=== PATIENT | female | born 1985 | race Caucasian/White ===

== ENCOUNTER 2020-07-31 06:13 | Inpatient (IN) | payer OTHER, SELFPAY ==
[2020-07-31] VITALS (60 sets, daily range): BP systolic 99–153; BP diastolic 55–121; PULSE 68–187; RESP 16–18; TEMP 36.6–37.2; O2SAT 100; BMI 30.3
--- NOTE | 2020-07-31 06:03 | PM.IMHP ---
H&P: HPI History of Present Illness Date/Time: 07/31/20 06:03 Chief complaint: Pre-admit Narrative: Ivon Rodriguez is a 34 year old female 011 whose last menstrual period was 11/12/2019, EDC is 08/18/2020, presents at 37 weeks gestation with gestational hypertension. Her blood pressures have been slowly rising. She had a previous gestational hypertension baby was delivered at 37 weeks. She also takes Zoloft for depression and anxiety. Risks and benefits reviewed. PIH labs are pending Review of Systems Review of Systems: All systems reviewed & are unremarkable except as noted in HPI and below PMFSH Family History Family History Sibling Heart attack Social History Social History Substance use: never Gender identity (if verbalized by the patient): Female Spiritual care concerns: No Meds Home Medications and Allergies Home Medications Medication Instructions Recorded Confirmed Type PNV cmb#95-ferrous fumarate-FA 1 tablet PO DAILY 07/21/20 07/21/20 History [] sertraline 100 mg PO DAILY 07/21/20 07/21/20 History Allergies Allergy/AdvReac Type Severity Reaction Status Date / Time omeprazole Allergy Mild Rash Verified 10/23/16 14:44 Exam Const: General: no acute distress Eyes: General: appearance normal, both eyes and all related structures Neck: Neck: supple and no JVD Thyroid: thyroid normal Resp: Effort & Inspection: normal respiratory effort Auscultation: clear to auscultation bilaterally Cardio: Rate: regular rate Rhythm: regular rhythm GI: Inspection: non-distended GI Palp: Yes Soft to palpation, No Tenderness to palpation present (GI) and No Guarding due to palpation present (GI) Auscultation: normal bowel sounds : General: Yes other ( gravid soft uterus) Skin: General skin exam: no rashes or lesions noted Extrem: General: normal to inspection and no edema Psych: Mental Status: mental status grossly normal Affect: normal affect Assessment and Plan Additional Plan impression: Term with gestational hypertension Plan: Medical induction of labor. PIH labs were pending. Spontaneous vaginal delivery is expected
--- NOTE | 2020-07-31 06:37 | WPDOBADMIT ---
Obstetrics - Admit Note Admission Note: record reviewed. No pertinent additions to the history and/or any subsequent changes in the physical findings that are not consistent with the expected course of the were found. Additions to the history and/or subsequent changes in the physical findings follow. None. cx 3-4/80/-1 arom clear blood tinged fhts ok
[2020-07-31 07:11] LABS: Basophils Absolute Auto 0.1 K/mm3 (0.0-0.1); Basophils Percent Auto 0.5 % (0.2-1.2); Eosinophils Absolute Auto 0.2 K/mm3 (0-0.3); Eosinophils Percent Auto 1.7 % (0-4.4); Hematocrit 36.5 % (37.0-47.0); Hemoglobin 12.3 g/dL (12.0-15.0); Immature Granulocyte Absolute 0.12 K/mm3 (0.00-0.031); Immature Granulocyte Percent A 1.2 % (0-0.5); Immature Platelet Fraction Pct 15.9 % (0.9-11.2); Lymphocytes Absolute Auto 2.11 K/mm3 (0.9-3.2); Lymphocytes Percent Auto 20.3 % (18.3-44.2); Mean Corpuscular HGB Conc 33.7 g/dl (32-36); Mean Corpuscular Hemoglobin 31.4 pg (26-34); Mean Corpuscular Volume 93.1 fl (80-100); Mean Platelet Volume 13.7 fl (7.4-10.4); Monocytes Absolute Auto 0.6 K/mm3 (0.1-0.6); Monocytes Percent Auto 5.5 % (2.6-8.5); Neutrophils Absolute Auto 7.4 K/mm3 (1.3-6.7); Neutrophils Percent Auto 70.8 % (45.5-73.1); Platelet Count Result 158 k/mm3 (150-375); Red Blood Count 3.92 M/mm3 (4.2-5.4); Red Cell Distribution Width 13.6 % (11.5-14.5); White Blood Count 10.4 K/mm3 (4.5-10.0)
[2020-07-31] MEDS: OXYTOCIN 30 UNITS/NS 500 ML 30 UNITS/500 ML BAG IV CONT (07:14)
[2020-07-31] MEDS: AMPICILLIN 2 GM/NS 100 ML 2 GM/100 ML BAG IVPB (07:15)
[2020-07-31] MEDS: LACTATED RINGERS 1,000 ML 125 ML IV CONT ×2 (07:15→10:29)
[2020-07-31 07:21] LABS: Alanine Aminotransferase 15 U/L (4-35); Albumin Level 3.9 g/dL (3.5-5.1); Alkaline Phosphatase 256 U/L (38-126); Anion Gap 12 mmol/L (8-16); Aspartate Amino Transferase 26 U/L (14-36); Bilirubin,Total 0.2 mg/dL (0.2-1.3); Blood Urea Nitrogen 5 mg/dL (7-17); Calcium 9.6 mg/dL (8.4-10.2); Carbon Dioxide 22 mmol/L (22-30); Chloride 104 mmol/L (98-107); Estimated Glomerular Filt Rate > 60; Glucose 100 mg/dL (65-105); Potassium 3.5 mmol/L (3.4-5.0); Sodium 138 mmol/L (137-145)
[2020-07-31 07:35] LABS: Uric Acid 4.9 mg/dL (2.5-7.5)
--- NOTE | 2020-07-31 07:46 | LDADM ---
This patient, Ivon Rodriguez, was admitted to Labor/Delivery/Recovery 106 on 07/31/20 at 06:13. Plans for labor, pain management and were discussed with patient. Patient/family oriented to hospital policies and general routines including ID bracelet, bed and alarms, visiting hours, pain management, procedures, bathroom and other care routines, personal items, smoking policy, room service/diet and guest tray routines, security routines, and visiting hours. Patient/Family are encouraged to report perceived risks to care and to ask questions if they do not understand what they are told or what they should do. See OBIX for further documentation.
--- NOTE | 2020-07-31 10:37 | WPDANESEPP ---
Anes - Eval Pre Procedure Procedure: Labor Epidural Date/Time: 07/31/20 10:37 Surgeon: Blaise Preop Diagnosis: Labor Pain Pre Op Diagnosis: IOL Patient Data Age: 34 Gender: F Height: 5 ft 5 in Weight: 82.72 kg Last Vital Signs Temp 36.6 C 07/31/20 10:21 Pulse 72 07/31/20 10:36 BP 102/61 07/31/20 10:36 Pulse Ox 100 07/31/20 10:32 Allergies Allergy/AdvReac Type Severity Reaction Status Date / Time omeprazole Allergy Mild Rash Verified 10/23/16 14:44 Home Medications Medication Instructions Recorded Confirmed Type PNV cmb#95-ferrous fumarate-FA 1 tablet PO DAILY 07/21/20 07/21/20 History [] sertraline 100 mg PO DAILY 07/21/20 07/21/20 History Laboratory Tests 07/31/20 07/31/20 07/31/20 06:44 06:44 06:44 WBC 10.4 K/mm3 H K/mm3 (4.5-10.0) RBC 3.92 M/mm3 L M/mm3 (4.2-5.4) Hgb 12.3 g/dL g/dL (12.0-15.0) Hct 36.5 % L % (37.0-47.0) MCV 93.1 fl fl (80-100) MCH 31.4 pg pg (26-34) MCHC 33.7 g/dl g/dl (32-36) RDW 13.6 % % (11.5-14.5) Plt Count 158 k/mm3 k/mm3 (150-375) MPV 13.7 fl H fl (7.4-10.4) Immature Gran % (Auto) 1.2 % H % (0-0.5) Neut % (Auto) 70.8 % % (45.5-73.1) Lymph % (Auto) 20.3 % % (18.3-44.2) Bland % (Auto) 5.5 % % (2.6-8.5) Eos % (Auto) 1.7 % % (0-4.4) Baso % (Auto) 0.5 % % (0.2-1.2) Lymph # (Auto) 2.11 K/mm3 K/mm3 (0.9-3.2) Bland # (Auto) 0.6 K/mm3 K/mm3 (0.1-0.6) Eos # (Auto) 0.2 K/mm3 K/mm3 (0-0.3) Baso # (Auto) 0.1 K/mm3 K/mm3 (0.0-0.1) Abs Immat Gran (auto) 0.12 K/mm3 H K/mm3 (0.00-0.031) Absolute Neuts (auto) 7.4 K/mm3 H K/mm3 (1.3-6.7) Absolute Nucleated RBC 0.0 K/mm3 K/mm3 (0.0-0.012) Nucleated RBC % 0.0 % % (0.0-0.2) % Immature Plt Fraction 15.9 % H % (0.9-11.2) Sodium Potassium Chloride Carbon Dioxide Anion Gap BUN Creatinine Estim Creat Clear Calc Estimated GFR Glucose Uric Acid 4.9 mg/dL mg/dL (2.5-7.5) Calcium Total Bilirubin AST ALT Alkaline Phosphatase Total Protein Albumin RPR Pending Blood Type Antibody Screen 07/31/20 07/31/20 06:44 06:44 WBC RBC Hgb Hct MCV MCH MCHC RDW Plt Count MPV Immature Gran % (Auto) Neut % (Auto) Lymph % (Auto) Bland % (Auto) Eos % (Auto) Baso % (Auto) Lymph # (Auto) Bland # (Auto) Eos # (Auto) Baso # (Auto) Abs Immat Gran (auto) Absolute Neuts (auto) Absolute Nucleated RBC Nucleated RBC % % Immature Plt Fraction Sodium 138 mmol/L mmol/L (137-145) Potassium 3.5 mmol/L mmol/L (3.4-5.0) Chloride 104 mmol/L mmol/L (98-107) Carbon Dioxide 22 mmol/L mmol/L (22-30) Anion Gap 12 mmol/L mmol/L (8-16) BUN 5 mg/dL L mg/dL (7-17) Creatinine 0.60 mg/dL L mg/dL (0.7-1.0) Estim Creat Clear Calc Not Reportable Estimated GFR > 60 (59 - ) Glucose 100 mg/dL mg/dL (65-105) Uric Acid Calcium 9.6 mg/dL mg/dL (8.4-10.2) Total Bilirubin 0.2 mg/dL mg/dL (0.2-1.3) AST 26 U/L U/L (14-36) ALT 15 U/L U/L (4-35) Alkaline Phosphatase 256 U/L H U/L (38-126) Total Protein 7.0 g/dL g/dL (6.3-8.2) Albumin 3.9 g/dL g/dL (3.5-5.1) RPR Blood Type O Positive Antibody Screen Negative Pregn
[2020-07-31] MEDS: AMPICILLIN 1 GM/NS 50 ML 1 GM/50 ML BAG IVPB (10:55)
[2020-07-31] MEDS: ONDANSETRON INJ 4 MG/2 ML VIAL IV PUSH (10:55)
[2020-07-31 11:44] LABS: Rapid Plasma Reagin Non-Reactive (NonReactive)
--- NOTE | 2020-07-31 11:55 | P.PCNOB_ITS ---
OB - Delivery Note Procedure Delivery date: 07/31/20 Procedure: mil//gbs prophylaxis Intrapartal events: None Induction method: AROM Delivery augmentation: pitocin Delivery monitor: external FHT Route of delivery: Episiotomy description: Midline Delivery repair: vicryl Specimen: No Estimated blood loss (mL): 157 Anesthesia type: Epidural Disposition: floor [place] Baby Date of : 07/31/20 Time of : 11:41 Weeks of gestation at delivery: 37 Infant gender: Female Weight (pounds): 6 Weight (ounces): 15 presentation: vertex position: Right Occiput Anterior Placenta delivery description: Spontaneous cord vessel description: 3 Vessels score one minute: 8 score five minutes: 9 Narrative: amp x 2
[2020-07-31] MEDS: OXYTOCIN 30 UNITS/NS 500 ML 30 UNITS/500 ML BAG 125 UNITS IV CONT (12:14)
[2020-07-31] MEDS: WITCH HAZEL 40 PADS 1 PAD TOPICAL (14:03)
[2020-07-31] MEDS: BENZOCAINE 20% AER SPR (*SP) 56 GM CAN 1 SPRAY TOPICAL (14:03)
--- NOTE | 2020-07-31 14:12 | PC.NURSE ---
Patient transferred to post room #291 per wheelchair from labor and delivery. Support person present. Oriented to unit, room, information board, rooming in, admission packet and security measures. Patient verbalizes understanding.
[2020-07-31] MEDS: IBUPROFEN 600 MG TABLET PO (19:57)
[2020-07-31] MEDS: LANOLIN (LANSINOH) 7.5 GM CREAM 1 APPLIC TOPICAL (20:00)
--- NOTE | 2020-07-31 20:30 | PC.NURSE ---
Breast pump provided due to + kun and initiation of phototherapy to facilitate colostrum/milk transition as quick as possible. Instructions given on breast pump care and usage, pumping schedule, nipple care, and collection and storage of breast milk. Encouraged [id number], breast massage and manual expression to stimulate supply. Pumping log provided and reviewed. Assessed patient for correct flange size, placement and draw. Taught pt hand expression which resulted in 10 drops that was spoon fed to infant. Patient verbalizes and demonstrates understanding of instructions.
[2020-08-01] MEDS: IBUPROFEN 600 MG TABLET PO ×2 (05:47→17:20)
[2020-08-01 05:51] LABS: Hematocrit 27.8 % (37.0-47.0); Hemoglobin 9.4 g/dL (12.0-15.0)
--- NOTE | 2020-08-01 06:33 | PM.OBPNVD ---
OB - PN: Subj Subjective Date/time seen: 08/01/20 06:33 Patient comments: no complaints and pain well controlled baby status: doing well and nursing well OB - PN: Obj Data Labs CBC & Chem 7: 08/01/20 05:43 07/31/20 06:44 Labs: Laboratory Results - last 24 hr 07/31/20 07/31/20 07/31/20 06:44 06:44 06:44 WBC 10.4 H RBC 3.92 L Hgb 12.3 Hct 36.5 L MCV 93.1 MCH 31.4 MCHC 33.7 RDW 13.6 Plt Count 158 MPV 13.7 H Immature Gran % (Auto) 1.2 H Neut % (Auto) 70.8 Lymph % (Auto) 20.3 Wilkin % (Auto) 5.5 Eos % (Auto) 1.7 Baso % (Auto) 0.5 Lymph # (Auto) 2.11 Wilkin # (Auto) 0.6 Eos # (Auto) 0.2 Baso # (Auto) 0.1 Abs Immat Gran (auto) 0.12 H Absolute Neuts (auto) 7.4 H Absolute Nucleated RBC 0.0 Nucleated RBC % 0.0 % Immature Plt Fraction 15.9 H Sodium Potassium Chloride Carbon Dioxide Anion Gap BUN Creatinine Estim Creat Clear Calc Estimated GFR Glucose Uric Acid 4.9 Calcium Total Bilirubin AST ALT Alkaline Phosphatase Total Protein Albumin RPR Non-reactive Blood Type Antibody Screen 07/31/20 07/31/20 08/01/20 06:44 06:44 05:43 WBC RBC Hgb 9.4 L Hct 27.8 L MCV MCH MCHC RDW Plt Count MPV Immature Gran % (Auto) Neut % (Auto) Lymph % (Auto) Wilkin % (Auto) Eos % (Auto) Baso % (Auto) Lymph # (Auto) Wilkin # (Auto) Eos # (Auto) Baso # (Auto) Abs Immat Gran (auto) Absolute Neuts (auto) Absolute Nucleated RBC Nucleated RBC % % Immature Plt Fraction Sodium 138 Potassium 3.5 Chloride 104 Carbon Dioxide 22 Anion Gap 12 BUN 5 L Creatinine 0.60 L Estim Creat Clear Calc Not Reportable Estimated GFR > 60 Glucose 100 Uric Acid Calcium 9.6 Total Bilirubin 0.2 AST 26 ALT 15 Alkaline Phosphatase 256 H Total Protein 7.0 Albumin 3.9 RPR Blood Type O Positive Antibody Screen Negative OB - PN A/P Plan day: 1 Plan: routine care Time Spent With Patient Time: Total time spent is greater than 50% in coordination of care (as documented) at patient's floor/unit and/or counseling patient: Time with patient: less than 15 minutes Review of Systems Review of Systems: All systems reviewed & are unremarkable except as noted in HPI and below Exam Const: General: no acute distress Eyes: General: appearance normal, both eyes and all related structures Neck: Neck: supple and no JVD Thyroid: thyroid normal Resp: Effort & Inspection: normal respiratory effort Auscultation: clear to auscultation bilaterally Cardio: Rate: regular rate Rhythm: regular rhythm GI: Inspection: non-distended GI Palp: Yes Soft to palpation, No Tenderness to palpation present (GI) and No Guarding due to palpation present (GI) Auscultation: normal bowel sounds : General: Yes bladder normal to palpation External Female Exam: normal external appearance Speculum Exam - Vagina: normal vaginal discharge and No vaginal bleeding Speculum Exam - Cervix: nontender Bimanual exam- vagina & uterus: bladder normal to palpation and No Cervical tenderness present OB/external & speculum: No vaginal bleeding Skin: General skin exam: no rashes or lesions noted Extrem: General: normal to inspection and no edema Psych: Mental Status: mental status grossly normal Affect: normal affect
[2020-08-01] MEDS: POLYSACCHARIDE IRON COMPLEX 150 MG CAPSULE PO ×2 (07:36→17:20)
[2020-08-01] MEDS: MULTIVIT/MIN/PREN/FOL AC/IRON TABLET 1 TAB PO (07:36)
[2020-08-01] MEDS: DOCUSATE SODIUM 100 MG CAPSULE PO ×2 (07:36→17:20)
[2020-08-01 08:55] VITALS: BP 156/84; PULSE 81; RESP 18; TEMP 37.3; O2SAT 100
[2020-08-01] MEDS: ACETAMINOPHEN 325 MG TABLET 650 MG PO (17:21)
[2020-08-01 20:00] VITALS: BP 118/82; PULSE 78; RESP 16; TEMP 36.6; O2SAT 100
[2020-08-02] MEDS: IBUPROFEN 600 MG TABLET PO (05:39)
[2020-08-02] MEDS: ACETAMINOPHEN 325 MG TABLET 650 MG PO (05:39)
--- NOTE | 2020-08-02 06:54 | P.DS_ITS ---
DS: Admitting Diagnosis Admitting Diagnosis Admitting Diagnosis: IOL gestational htn 37 weeks gbs pos DS: Summary Time Spent with Patient Time attestation: Total time spent providing and/or coordinating discharge se rvices: hospital course unremarkable. Eating,voiding,ambulating Exam Const: General: no acute distress Eyes: General: appearance normal, both eyes and all related structures Neck: Neck: supple and no JVD Thyroid: thyroid normal Resp: Effort & Inspection: normal respiratory effort Auscultation: clear to auscultation bilaterally Cardio: Rate: regular rate Rhythm: regular rhythm GI: Inspection: non-distended GI Palp: Yes Soft to palpation, No Tenderness to palpation present (GI) and No Guarding due to palpation present (GI) Auscultation: normal bowel sounds : General: Yes bladder normal to palpation External Female Exam: normal external appearance Speculum Exam - Vagina: normal vaginal discharge and No vaginal bleeding Speculum Exam - Cervix: nontender Bimanual exam- vagina & uterus: bladder normal to palpation and No Cervical tenderness present OB/external & speculum: No vaginal bleeding Skin: General skin exam: no rashes or lesions noted Extrem: General: normal to inspection and no edema Psych: Mental Status: mental status grossly normal Affect: normal affect Discharge Plan Discharge Attending physician on discharge: Feliberto Jones Discharging Clinician: Feliberto Jones Patient Disposition: Home, Self-Care Activity: may shower, no straining, may drive after 2 weeks and pelvic rest Diet: heart healthy Patient Instructions: Antibiotic Form Stand Alone Forms: General Discharge Information Follow-up/Referrals: Feliberto Jones MD [Physician] - Discharge Medications: Continued sertraline 100 mg Tablet 100 mg PO DAILY RF: 0 PNV cmb#95-ferrous fumarate-FA [] 28 mg iron- 800 mcg Tablet 1 tablet PO DAILY RF: 0 Date of admission: 07/31/20 06:13 Primary Care Provider: Nicolas,Yuri Samuel Admitting Provider: Feliberto Jones Attending physician on admission: Feliberto Jones
--- NOTE | 2020-08-02 06:57 | PM.OBPNVD ---
OB - PN: Subj Subjective Date/time seen: 08/02/20 06:57 Patient comments: no complaints and pain well controlled baby status: doing well OB - PN: Obj Data Labs CBC & Chem 7: 08/01/20 05:43 07/31/20 06:44 OB - PN A/P Plan day: 1 Plan: routine care, discharge home and follow up 6 weeks Time Spent With Patient Time: Total time spent is greater than 50% in coordination of care (as documented) at patient's floor/unit and/or counseling patient: Time with patient: less than 15 minutes Review of Systems Review of Systems: All systems reviewed & are unremarkable except as noted in HPI and below Exam Const: General: no acute distress Eyes: General: appearance normal, both eyes and all related structures Neck: Neck: supple and no JVD Thyroid: thyroid normal Resp: Effort & Inspection: normal respiratory effort Auscultation: clear to auscultation bilaterally Cardio: Rate: regular rate Rhythm: regular rhythm GI: Inspection: non-distended GI Palp: Yes Soft to palpation, No Tenderness to palpation present (GI) and No Guarding due to palpation present (GI) Auscultation: normal bowel sounds : General: Yes bladder normal to palpation External Female Exam: normal external appearance Speculum Exam - Vagina: normal vaginal discharge and No vaginal bleeding Speculum Exam - Cervix: nontender Bimanual exam- vagina & uterus: bladder normal to palpation and No Cervical tenderness present OB/external & speculum: No vaginal bleeding Skin: General skin exam: no rashes or lesions noted Extrem: General: normal to inspection and no edema Psych: Mental Status: mental status grossly normal Affect: normal affect
[2020-08-02] MEDS: DOCUSATE SODIUM 100 MG CAPSULE PO (07:01)
[2020-08-02] MEDS: POLYSACCHARIDE IRON COMPLEX 150 MG CAPSULE PO (07:01)
[2020-08-02] MEDS: MULTIVIT/MIN/PREN/FOL AC/IRON TABLET 1 TAB PO (07:01)
[2020-08-02 08:25] VITALS: BP 139/84; PULSE 83; TEMP 36.6; O2SAT 100
[2020-08-02] MEDS: TETANUS,DIPHTHERIA,AC PERTUSSIS ADULT (0.5 ML) BOOSTRIX IM (09:00)
--- NOTE | 2020-08-02 13:26 | PC.NURSE ---
0900 Patient viewed the discharge video Mother & Baby Care, The First Two Weeks . Patient was given the opportunity and encouraged to ask questions. Patient verbalized understanding of information shared and has been given the mother/baby guide for home reference.
[2020-08-04 10:47] VITALS: BP 142/87; PULSE 78; RESP 20; O2SAT 100
== END 2020-08-02 11:55 | disposition home or self-care (01) | DRG 560 ==
LOC: ANHLDR 06:17 → ANHOB2 14:32
PROVIDERS: Admitting Provider Obstetrics & Gynecology; PCP Family Medicine Sports Medicine; Visit Provider Obstetrics & Gynecology
DX: O13.4 Gestational [pregnancy-induced] hypertension without significant proteinuria, complicating childbirth (principal); Z37.0 Single live birth; Z3A.37 37 weeks gestation of pregnancy; Z23 Encounter for immunization; O99.344 Other mental disorders complicating childbirth; F41.8 Other specified anxiety disorders
CPT/HCPCS: 36415; 80053; 84550; 85014; 85018; 85025; 85055; 86592; 86850; 86900; 86901; 90471; 90686; 90715; A9270; G0008; J0290; J2405; J2590; J2795; J7120

== ENCOUNTER 2021-06-04 17:43 | Outpatient (CLI) | payer OTHER, SELFPAY ==
[2021-06-04 18:14] LABS: Basophils Absolute Auto 0.1 K/mm3 (0.0-0.1); Basophils Percent Auto 0.9 % (0.2-1.2); Eosinophils Absolute Auto 0.2 K/mm3 (0-0.3); Eosinophils Percent Auto 2.9 % (0-4.4); Hematocrit 36.4 % (37.0-47.0); Hemoglobin 11.9 g/dL (12.0-15.0); Immature Granulocyte Absolute 0.01 K/mm3 (0.00-0.031); Immature Granulocyte Percent A 0.1 % (0-0.5); Lymphocytes Absolute Auto 2.41 K/mm3 (0.9-3.2); Lymphocytes Percent Auto 35.4 % (18.3-44.2); Mean Corpuscular HGB Conc 32.7 g/dl (32-36); Mean Corpuscular Hemoglobin 30.1 pg (26-34); Mean Corpuscular Volume 91.9 fl (80-100); Mean Platelet Volume 11.3 fl (7.4-10.4); Monocytes Absolute Auto 0.5 K/mm3 (0.1-0.6); Monocytes Percent Auto 6.9 % (2.6-8.5); Neutrophils Absolute Auto 3.7 K/mm3 (1.3-6.7); Neutrophils Percent Auto 53.8 % (45.5-73.1); Platelet Count Result 179 k/mm3 (150-375); Red Blood Count 3.96 M/mm3 (4.2-5.4); Red Cell Distribution Width 13.7 % (11.5-14.5); White Blood Count 6.8 K/mm3 (4.5-10.0)
[2021-06-04 18:25] LABS: Alanine Aminotransferase 15 U/L (4-35); Albumin Level 4.3 g/dL (3.5-5.1); Alkaline Phosphatase 47 U/L (38-126); Anion Gap 8 mmol/L (8-16); Aspartate Amino Transferase 19 U/L (14-36); Bilirubin,Total 0.1 mg/dL (0.2-1.3); Blood Urea Nitrogen 13 mg/dL (7-17); Calcium 9.8 mg/dL (8.4-10.2); Carbon Dioxide 27 mmol/L (22-30); Chloride 104 mmol/L (98-107); Cholesterol 178 mg/dL (0-200); Estimated Glomerular Filt Rate > 60; Glucose 83 mg/dL (65-110); HDL Direct 64 mg/dL; Sodium 139 mmol/L (137-145); Triglycerides 160 mg/dL (<150)
[2021-06-04 18:35] LABS: LDL Cholesterol Direct 79 mg/dL
[2021-06-04 18:55] LABS: Thyroid Stimulating Hormone 0.324 uIU/mL (0.465-4.680)
[2021-06-04 19:19] LABS: Free T4 Free Thyroxine 0.89 ng/mL (0.78-2.19); Vitamin D 25 Hydroxy 33.1 ng/mL
== END 2021-06-04 17:44 | disposition home or self-care (01) ==
PROVIDERS: PCP Physician Assistant; Visit Provider Physician Assistant
DX: R53.83 Other fatigue (principal); Z76.89 Persons encountering health services in other specified circumstances; Z82.49 Family history of ischemic heart disease and other diseases of the circulatory system
CPT/HCPCS: 36415; 80053; 80061; 82306; 84439; 84443; 85025

== ENCOUNTER 2021-06-11 12:18 | Outpatient (CLI) | payer OTHER, SELFPAY ==
[2021-06-11 12:48] LABS: Basophils Absolute Auto 0.1 K/mm3 (0.0-0.1); Basophils Percent Auto 0.8 % (0.2-1.2); Eosinophils Absolute Auto 0.2 K/mm3 (0-0.3); Eosinophils Percent Auto 2.6 % (0-4.4); Hematocrit 39.8 % (37.0-47.0); Hemoglobin 12.9 g/dL (12.0-15.0); Immature Granulocyte Absolute 0.02 K/mm3 (0.00-0.031); Immature Granulocyte Percent A 0.3 % (0-0.5); Lymphocytes Percent Auto 28.8 % (18.3-44.2); Mean Corpuscular HGB Conc 32.4 g/dl (32-36); Mean Corpuscular Hemoglobin 30.1 pg (26-34); Mean Platelet Volume 11.2 fl (7.4-10.4); Monocytes Absolute Auto 0.4 K/mm3 (0.1-0.6); Monocytes Percent Auto 5.3 % (2.6-8.5); Neutrophils Absolute Auto 4.1 K/mm3 (1.3-6.7); Neutrophils Percent Auto 62.2 % (45.5-73.1); Platelet Count Result 173 k/mm3 (150-375); Red Blood Count 4.28 M/mm3 (4.2-5.4); Red Cell Distribution Width 13.6 % (11.5-14.5); White Blood Count 6.6 K/mm3 (4.5-10.0)
[2021-06-11 14:09] LABS: Iron 49 ug/dL (37-170)
[2021-06-11 14:18] LABS: Percent Iron Saturation 15 % (20-50)
== END 2021-06-11 12:19 | disposition home or self-care (01) ==
LOC: ANHLAB 12:22
PROVIDERS: PCP Physician Assistant; Visit Provider Physician Assistant
DX: D64.9 Anemia, unspecified (principal)
CPT/HCPCS: 36415; 82607; 82728; 83540; 83550; 85025

== ENCOUNTER 2021-06-12 19:45 | Emergency (ER) | payer OTHER, SELFPAY ==
[2021-06-12 19:56] VITALS: BP 127/79; PULSE 87; RESP 18; TEMP 37.3; O2SAT 100
--- NOTE | 2021-06-12 20:11 | ED.GENADULT ---
HPI - General Adult General Chief complaint: Upper Respiratory Infection Stated complaint: Stuffy nose Time Seen by Provider: 06/12/21 19:57 Source: patient and RN notes reviewed Mode of arrival: ambulatory Limitations: no limitations History of Present Illness HPI narrative: 35-year-old female presents with complaints of head cold, sinus pressure, and nasal congestion for the past 4 days. Ivon reports constant symptoms with inability to taste or smell tonight at dinner at approximately 19:00. ?Took Sudafed and Diana-Hankins Cold and Sinus once without relief. ?Denies cough and chest congestion. ?Rhinorrhea and nasal congestion. ?Close ill exposures at home per Ivon. ? Denies fevers or chills. Denies headaches, dizziness, weakness. ?No nausea, vomiting, and abdominal pain. ?Tolerating po intake well. ?Denies dyspnea, chest pain, coughing up blood, facial pain, and rash. ?LMP May 23, 2021. ?Remains active. ?The patient reports she has not been diagnosed with COVID-19. The patient reports she received 2 Vsnap COVID-19 vaccines. ?The patient reports she is not waiting for the results of a COVID-19 lab test. The patient reports she does not have sweats, myalgia, or fatigue. ?The patient reports she does not have a worsening cough. ?The patient reports she does not have any loss of smell or taste or diarrhea. ?Denies recent traveling. ?Denies concerns for COVID-19 or exposures. ?At this time, the patient is not suspected of having COVID-19. Some parts of this dictation were generated by voice recognition software and may contain typographical and/or grammatical inaccuracies. Related Data Home Medications Medication Instructions Recorded Confirmed fluoxetine 10 mg PO DAILY 06/12/21 06/12/21 Allergies Allergy/AdvReac Type Severity Reaction Status Date / Time omeprazole Allergy Mild Rash Verified 06/12/21 20:01 Review of Systems Review of Systems: CONSTITUTIONAL: Denies fever, chills, sweats. Complains of loss of taste and smell. EYES: Denies visual changes, redness, discharge. ENT: Denies sore throat, otalgia. Complains of sinus pressure and congestion, rhinorrhea, congestion. CARDIOVASCULAR: Denies chest pain, palpitations, edema. RESPIRATORY: Denies wheezing, dyspnea, cough. GASTROINTESTINAL: Denies abdominal pain, nausea, vomiting, diarrhea. SKIN: Denies rash or itching. MUSCULOSKELETAL: Denies acute back pain, joint pain, myalgia. NEUROLOGIC: Denies numbness or focal weakness. PSYCHIATRIC: Denies anxiety or depression, GANT. All systems reviewed & are unremarkable except as noted in HPI and below. [facility] Past Medical History Medical History (Updated 06/13/21 @ 00:01 by Tiffany Dewitt) Anxiety Vaginal delivery X2 Surgical History Surgical History (Updated 06/12/21 @ 20:30 by CRISTHIAN Abdullahi) No significant past surgical history Family History Family History (Updated 06/12/21 @ 20:31 by CRISTHIAN Abdullahi) Sibling Heart attack Father Alive and well Mother Alive and well Social History Social History (Updated 06/12/21 @ 20:31 by CRISTHIAN Abdullahi) Smoking status: Former smoker Tobacco type: cigarettes Second hand tobacco smoke exposure: No Smoking end date: 11/03/15 Alcohol intake: current Substance use: never Substance use type: does not use Living arrangements: with family Occupation/Education: occupation Gender identity (if verbalized by the patient): Female Sexual Orientation (if Verbalized by the Patient): Straight or Heterosexual Spiritual care concerns: No Comments At time of signature, agree with the nurse past medical, surgical, social, and family history. There is no relevant family history pertinent to the presenting complaint. Exam Narrative: GENERAL: This is a well-nourished, well-developed patient, in no apparent distress. Talks in full sentences and ambulates with steady gait without dyspnea. HEAD: Normocephalic, atraumatic.
[2021-06-14 20:10] LABS: SARS-CoV-2 RNA PCR Negative
== END 2021-06-12 20:41 | disposition home or self-care (01) ==
PROVIDERS: Emergency Provider Nurse Practitioner Family; PCP Physician Assistant
DX: B34.9 Viral infection, unspecified (principal); H92.01 Otalgia, right ear; Z20.822 Contact with and (suspected) exposure to COVID-19; Z87.891 Personal history of nicotine dependence; F41.9 Anxiety disorder, unspecified; F32.9 Major depressive disorder, single episode, unspecified
CPT/HCPCS: 87426; 99213; C9803; G0463; U0003; U0005

== ENCOUNTER 2022-11-23 09:35 | Outpatient (CLI) | payer OTHER, SELFPAY ==
[2022-11-23 10:07] LABS: Basophils Absolute Auto 0.1 K/mm3 (0.0-0.1); Basophils Percent Auto 0.8 % (0.2-1.2); Eosinophils Absolute Auto 0.2 K/mm3 (0-0.3); Eosinophils Percent Auto 2.8 % (0-4.4); Hematocrit 38.1 % (37.0-47.0); Hemoglobin 12.8 g/dL (12.0-15.0); Immature Granulocyte Absolute 0.02 K/mm3 (0.00-0.031); Immature Granulocyte Percent A 0.3 % (0-0.5); Lymphocytes Absolute Auto 1.89 K/mm3 (0.9-3.2); Lymphocytes Percent Auto 29.8 % (18.3-44.2); Mean Corpuscular HGB Conc 33.6 g/dl (32-36); Mean Corpuscular Hemoglobin 31.4 pg (26-34); Mean Corpuscular Volume 93.4 fl (80-100); Mean Platelet Volume 10.9 fl (7.4-10.4); Monocytes Absolute Auto 0.5 K/mm3 (0.1-0.6); Monocytes Percent Auto 7.6 % (2.6-8.5); Neutrophils Absolute Auto 3.7 K/mm3 (1.3-6.7); Neutrophils Percent Auto 58.7 % (45.5-73.1); Platelet Count Result 170 k/mm3 (150-375); Red Blood Count 4.08 M/mm3 (4.2-5.4); Red Cell Distribution Width 12.4 % (11.5-14.5); White Blood Count 6.3 K/mm3 (4.5-10.0)
[2022-11-23 10:23] LABS: Alanine Aminotransferase 20 U/L (6-35); Albumin Level 4.2 g/dL (3.5-5.1); Alkaline Phosphatase 56 U/L (38-126); Anion Gap 7 mmol/L (8-16); Aspartate Amino Transferase 23 U/L (14-36); Bilirubin,Total 0.4 mg/dL (0.2-1.3); Blood Urea Nitrogen 11 mg/dL (7-17); Carbon Dioxide 29 mmol/L (22-30); Chloride 102 mmol/L (98-107); Cholesterol 179 mg/dL (0-200); Estimated Glomerular Filt Rate > 60; Glucose 88 mg/dL (65-110); HDL Direct 62 mg/dL; Magnesium 1.8 mg/dL (1.6-2.3); Potassium 3.9 mmol/L (3.4-5.0); Sodium 138 mmol/L (137-145); Triglycerides 50 mg/dL (<150)
[2022-11-23 10:34] LABS: LDL Cholesterol Direct 87 mg/dL
[2022-11-23 10:38] LABS: Vitamin D 25 Hydroxy 37.4 ng/mL
[2022-11-23 10:51] LABS: Thyroid Stimulating Hormone Reflex 0.327 uIU/mL (0.465-4.68)
[2022-11-23 10:58] LABS: Hemoglobin A1C 4.8 % (<5.7)
[2022-11-23 12:03] LABS: Free T4 Free Thyroxine Reflex 0.91 ng/dL (0.78-2.19)
[2022-11-23 12:47] LABS: Total Triiodothyronine (T3) 1.36 NG/ML (0.97-1.69)
== END 2022-11-23 09:36 | disposition home or self-care (01) ==
PROVIDERS: PCP Physician Assistant; Visit Provider Nurse Practitioner Family
DX: Z13.0 Encounter for screening for diseases of the blood and blood-forming organs and certain disorders involving the immune mechanism (principal); Z13.1 Encounter for screening for diabetes mellitus; Z13.29 Encounter for screening for other suspected endocrine disorder; Z13.220 Encounter for screening for lipoid disorders; Z13.9 Encounter for screening, unspecified
CPT/HCPCS: 36415; 80053; 80061; 82306; 82607; 83036; 83735; 84439; 84443; 84480; 85025

== ENCOUNTER 2024-10-19 16:36 | Emergency (ER) | payer OTHER, SELFPAY ==
[2024-10-19 17:07] VITALS: BP 125/80; PULSE 85; RESP 18; TEMP 36.4; O2SAT 100
[2024-10-19 17:17] LABS: EDSTREPNEGPOS1 Negative (Negative)
--- NOTE | 2024-10-19 17:17 | ED.URI ---
HPI - URI/Sore Throat General Chief Complaint: Upper Respiratory Infection Stated Complaint: sore throat History of Present Illness HPI Narrative: 38-year-old female presented for complaint of sore throat for about 4 weeks. She states it feels like her glands are swollen. States her daughter tested positive for strep a week ago. Denies nausea vomiting diarrhea, fevers or chills. Related Data Home Medications ?Medication ?Instructions ?Recorded ?Confirmed ?Last Taken ?Type fluoxetine 40 mg capsule mg 10/19/24 Unknown History lamotrigine 200 mg tablet mg 10/19/24 Unknown History methylphenidate HCl 36 mg mg PO 10/19/24 Unknown History tablet,extended release 24 hr Allergies Allergy/AdvReac Type Severity Reaction Status Date / Time omeprazole Allergy Mild Rash Verified 10/19/24 16:46 Review of Systems Review of Systems: CONSTITUTIONAL: Denies body aches, fever, chills, or sweats. EYES: Denies visual changes, redness, or discharge. ENT: reports throat pain Denies rhinorrhea, congestion, or otalgia. CARDIOVASCULAR: Denies chest pain, palpitations, or edema. RESPIRATORY: Denies dyspnea. GASTROINTESTINAL: Denies abdominal pain, nausea, vomiting, or diarrhea. SKIN: Denies rash MUSCULOSKELETAL: Denies back pain, joint pain, or myalgia. NEUROLOGIC: Denies headache PMFSH Past Medical History Medical History Vaginal delivery X2 Anxiety Surgical History Surgical History No significant past surgical history Family History Family History Sibling Heart attack Alcohol abuse Father Alive and well Grandparent Depression Cancer Hypertension Social History Social History Smoking status: Current every day smoker Tobacco type: e-cigarettes/vaping Second hand tobacco smoke exposure: No Smoking end date: 11/03/15 Alcohol intake: current Substance use: never Substance use type: does not use Do You Feel Safe in your Home?: Yes Lack of Transportation: No Lack of Food: Never True Current Housing: I Have Housing Concerned About Future Housing: No Difficulty Paying Gas/Electric Bills: No Difficulty Paying for Meds: No Currently Unemployed: No Education: Don't Know Difficulty w/ Childcare or Family Care: No Living arrangements: with family Occupation/Education: occupation Gender identity (if verbalized by the patient): Female Sexual Orientation (if Verbalized by the Patient): Straight or Heterosexual Spiritual care concerns: No Agree to blood products: Yes Exam Narrative: GENERAL: well-appearing, no acute distress. EYES: conjunctivae clear ENT: Mucous membranes moist. TM pearly farfan with normal light reflex bilaterally; no tragal tenderness. Oropharynx not erythematous without lesions. Tonsils not enlarged and without exudate. No drooling, no hoarseness, no trismus, uvula midline. No tripod positioning, hot potato voice, or soft palate swelling. NECK: Supple. No lymphadenopathy CHEST: Clear to auscultation, breath sounds equal. No respiratory distress, speaks in full sentences. HEART: Regular rate and rhythm. No murmur heard. SKIN: Warm, dry, no rash. NEURO: Alert and oriented x3. Course Course Emergency Course: Patient is aware of diagnosis, understands and agrees to treatment plan. Anticipatory guidance given. Patient agrees to follow-up as directed and is aware of reasons to seek care at the emergency department. Portions of this record may have been created with voice recognition software Level of Care: Express Care Visit Vital Signs Vital signs: Vital Signs Temperature 97.6 F 10/19/24 17:07 Pulse Rate 85 10/19/24 17:07 Respiratory Rate 18 10/19/24 17:07 Blood Pressure 125/80 10/19/24 17:07 Pulse Oximetry 100 10/19/24 17:07 Oxygen Delivery Room Air 10/19/24 17:07 Temperature 97.6 F 10/19/24 17:07 Pulse Rate 85 10/19/24 17:07 Respiratory Rate 18 10/19/24 17:07 Blood Pressure 125/80 10/19/24 17:07 Pulse Oximetry 100 10/19/24 17:07 Oxygen Delivery Room Air 10/19/24 17:07 MDM - URI/Sore Throat MDM Narrative Medical decision making narrative: Neg strep result reviewed with pt. Advise supportive treatments. Patient is appropriate for outpatient treatment and follow-up. Differential Diagnosis Differential diagnosis: Likely upper respiratory infection, viral infection and pharyngitis Lab Data Labs: Lab Results 10/19/24 Range/Units 17:15 POC Grp A Strep Screen Negative (Negative) Discharge Plan Discharge Clinical Impression: Throat pain Patient Disposition: Home, Self-Care Condition: Stable Instructions: Lymphadenopathy (ED) Additional Instructions: Rapid strep swab was negative today You will be notified in a few days if the culture comes back positive for strep, and appropriate antibiotics will be called in at that time. if symptoms are due to a viral illness, it is not treated with antibiotics. Viral symptoms can be present for up to 10-14 days. Tylenol or ibuprofen every 8 hours as needed for pain/fever Soft foods, cool liquids, warm tea. Gargle with warm saltwater twice a day. Chloraseptic spray and throat lozenges. Rest and stay hydrated. --Follow up with your PCP --Go to the ER immediately if you cannot swallow your saliva, trouble breathing/wheezing, throat swelling, pain is persistent and severe Patient Language: [place] Prescriptions: No Action fluoxetine 40 mg capsule lamotrigine 200 mg tablet methylphenidate HCl 36 mg tablet extended release 24hr PO fluoxetine 60 mg tablet 60 mg PO DAILY Qty: 90 1RF Rx Instructions: this is a corrected order. Last order was not the right dose. aripiprazole [Abilify] 5 mg tablet 5 mg PO QHS Qty: 30 2RF Follow-up/Referrals: Karine Schmidt APRN [Primary Care Provider] -
== END 2024-10-19 17:25 | disposition home or self-care (01) ==
PROVIDERS: Emergency Provider Nurse Practitioner Family; PCP Nurse Practitioner Family
DX: J02.9 Acute pharyngitis, unspecified (principal); F17.290 Nicotine dependence, other tobacco product, uncomplicated; Z79.899 Other long term (current) drug therapy
CPT/HCPCS: 87081; 87880; 99213; G0463